=== PATIENT | male | born 1945 | race Caucasian/White ===

== ENCOUNTER 2018-05-06 09:13 | Emergency (ER) | payer OTHER ==
--- NOTE | 2018-05-06 09:36 | ER ---
Nurse's Notes [facility] Name: Trevin Foote Jr Age: 72 yrs Sex: Male : 1945 Arrival Date: 05/06/2018 Time: 09:16 Bed 13 Private MD: None, None Diagnosis: Cellulitis and abscess of mouth Presentation: 05/06 09:28 Presenting complaint: Patient states: L facial swelling and pain that began yesterday. ss "I think it's an abscessed tooth.". Transition of care: patient was not received from another setting of care. Onset of symptoms was May 05, 2018. Risk Assessment: Do you want to hurt yourself or someone else? Patient reports no desire to harm self or others. Initial Sepsis Screen: Does the patient meet any 2 criteria? No. Patient's initial sepsis screen is negative. Does the patient have a suspected source of infection? Yes: Other: tooth. Care prior to arrival: None. 09:28 Method Of Arrival: Ambulatory ss 09:28 Acuity: BRUCE 4 ss Triage Assessment: 09:38 General: Appears in no apparent distress. uncomfortable. EENT: Reports pain in left em cheek. Historical: - Allergies: 09:32 PENICILLINS; ss - PMHx: 09:32 COPD; Diabetes - NIDDM; Hypertension; ss - PSHx: 09:32 L knee replacement; cardiac stents x2; ss - Immunization history:: Adult Immunizations up to date. - Social history:: The patient lives at home, Smoking status: Patient/guardian denies using tobacco. - Ebola Screening: : Patient denies exposure to infectious person Patient denies travel to an Ebola-affected area in the 21 days before illness onset. Screenin:40 Abuse screen: Denies threats or abuse. Nutritional screening: No deficits noted. em Tuberculosis screening: No symptoms or risk factors identified. Fall Risk None identified. Assessment: 09:37 General: Appears in no apparent distress. uncomfortable, Behavior is calm, cooperative. em Pain: Complains of pain in left cheek Pain currently is 6 out of 10 on a pain scale. Neuro: Level of Consciousness is awake, alert, obeys commands, Oriented to person, place, time, situation. Cardiovascular: Capillary refill < 3 seconds Patient's skin is warm and dry. Respiratory: Airway is patent Respiratory effort is even, unlabored, Respiratory pattern is regular, symmetrical. GI: Abdomen is flat. : No signs and/or symptoms were reported regarding the genitourinary system. EENT: Oral mucosa is moist. Derm: Skin is intact, Skin is pink, warm \\T\\ dry. Musculoskeletal: Range of motion: intact in all extremities. 09:45 General: The previous assessment is accurate. Call light remains within reach. . ss Vital Signs: 09:32 BP 163 / 79; Pulse 66; Resp 16; Temp 98.1; Pulse Ox 96% on R/A; Weight 83.91 kg; Height ss 5 ft. 7 in. (170.18 cm); Pain 6/10; 09:32 Body Mass Index 28.97 (83.91 kg, 170.18 cm) ED Course: 09:16 Patient arrived in ED. sb2 09:17 None, None is Private Physician. sb2 09:22 Tim Monet MD is Attending Physician. 09:32 Triage completed. ss 09:32 Arm band placed on right wrist. ss 09:42 Deng Kaur LVN is Primary Nurse. em 09:46 Patient has correct armband on for positive identification. Call light in reach. Side em rails up X2. Adult w/ patient. 09:46 No provider procedures requiring assistance completed. Patient did not have IV access em during this emergency room visit. Administered Medications: No medications were administered Outcome: 09:36 Discharge ordered by . 09:48 Discharged to home ambulatory. em 09:48 Condition: good 09:48 Discharge instructions given to patient, Instructed on discharge instructions, follow up and referral plans. no drinking with medication, no driving heavy equipment, medication usage, Demonstrated understanding of instructions, follow-up care, medications, Prescriptions given X 2. 09:48 Patient left the ED. em Signatures: Dneg Kaur LVN LVN em [place] Yi RN RN Tim Monet MD MD Mariluz Fischer sb2
--- NOTE | 2018-05-06 09:36 | EDPHYS ---
Physician Documentation [facility] Name: Trevin Foote Jr Age: 72 yrs Sex: Male : 1945 Arrival Date: 05/06/2018 Time: 09:16 Bed 13 Private MD: None, None ED Physician Tim Monet HPI: 05/06 09:30 This 72 yrs old Male presents to ER via Unassigned with complaints of gs Toothache. 09:30 The patient presents with swelling. The problem is located in the left cheek and upper gs left second bicuspid. Onset: The symptoms/episode began/occurred 3 day(s) ago. Duration: The symptoms are continuous. Modifying factors: The symptoms are alleviated by nothing, the symptoms are aggravated by nothing. Associated signs and symptoms: Pertinent negatives: fever. Severity of symptoms: At their worst the symptoms were moderate, in the emergency department the symptoms are unchanged. The patient has experienced similar episodes in the past, a few times. Historical: - Allergies: 09:32 PENICILLINS; ss - PMHx: 09:32 COPD; Diabetes - NIDDM; Hypertension; ss - PSHx: 09:32 L knee replacement; cardiac stents x2; ss - Immunization history:: Adult Immunizations up to date. - Social history:: The patient lives at home, Smoking status: Patient/guardian denies using tobacco. - Ebola Screening: : Patient denies exposure to infectious person Patient denies travel to an Ebola-affected area in the 21 days before illness onset. ROS: 09:31 Constitutional: Negative for fever. gs 09:31 All other systems are negative. Exam: 09:31 Head/Face: Normocephalic, atraumatic. Eyes: Pupils equal round and reactive to light, gs extra-ocular motions intact. Lids and lashes normal. Conjunctiva and sclera are non-icteric and not injected. Cornea within normal limits. Periorbital areas with no swelling, redness, or edema. Cardiovascular: Regular rate and rhythm with a normal S1 and S2. No gallops, murmurs, or rubs. Normal PMI, no JVD. No pulse deficits. Respiratory: Lungs have equal breath sounds bilaterally, clear to auscultation and percussion. No rales, rhonchi or wheezes noted. No increased work of breathing, no retractions or nasal flaring. 09:31 Constitutional: The patient appears alert, awake. 09:31 Head/face: Noted is swelling, that is mild, of the left cheek. 09:31 ENT: Dental exam: abscess, that is mild, specifically in the upper left first molar (#14). Vital Signs: 09:32 BP 163 / 79; Pulse 66; Resp 16; Temp 98.1; Pulse Ox 96% on R/A; Weight 83.91 kg; Height ss 5 ft. 7 in. (170.18 cm); Pain 6/10; 09:32 Body Mass Index 28.97 (83.91 kg, 170.18 cm) ss MDM: 09:25 Patient medically screened. 09:31 Differential diagnosis: dental caries, dental abscess. Data reviewed: vital signs, gs nurses notes. Response to treatment: There is no appreciated change of the patient's symptoms at this time, and as a result, I will discharge patient. Administered Medications: No medications were administered Disposition: 05/06/18 09:36 Discharged to Home. Impression: Cellulitis and abscess of mouth. - Condition is Stable. - Discharge Instructions: Dental Abscess. - Prescriptions for Clindamycin HCl 300 mg Oral Capsule - take 1 capsule by ORAL route every 8 hours for 7 days; 21 capsule. Tylenol- Codeine #4 300-60 mg Oral Tablet - take 1 tablet by ORAL route every 6 hours As needed; 12 tablet. - Medication Reconciliation Form, Thank You Letter, Antibiotic Education, Prescription Opioid Use form. - Follow up: Private Physician; When: Tomorrow; Reason: Re-evaluation by your physician. Signatures: Deng Kaur LVN LVN em Smirch, Shelby, RN RN Tim Monet MD MD gs Corrections: (The following items were deleted from the chart) 09:48 09:36 05/06/2018 09:36 Discharged to Home. Impression: Cellulitis and abscess of mouth. em Condition is Stable. Forms are Medication Reconciliation Form, Thank You Letter, Antibiotic Education, Prescription Opioid Use. Follow up: Private Physician; When: Tomorrow; Reason: Re-evaluation by your physician.
[2018-05-06 09:55] VITALS: BP 163/79; TEMP 98.1; O2SAT 96
== END 2018-05-06 09:48 | disposition home or self-care (01) ==
LOC: ER 09:13
DX: K12.2 Cellulitis and abscess of mouth (principal); E11.9 Type 2 diabetes mellitus without complications; I10 Essential (primary) hypertension; Z96.652 Presence of left artificial knee joint; Z88.0 Allergy status to penicillin
CPT/HCPCS: 99282

== ENCOUNTER 2022-11-09 19:45 | Emergency (ER) | payer OTHER ==
--- NOTE | 2022-11-09 22:12 | RAD REPORT ---
EXAM DESCRIPTION: Waqar Single View11/09/2022 10:02 pm CLINICAL HISTORY: Shortness of breath COMPARISON: 2018 FINDINGS: Left lateral costophrenic sulcus is not included in the film and is not evaluated. The lungs are mildly hyperaerated. The visualized lungs appear clear of acute infiltrate. The heart is normal size IMPRESSION: No acute abnormalities displayed
--- NOTE | 2022-11-09 22:39 | ER ---
Nurse's Notes [facility] Name: Trevin Foote Jr Age: 77 yrs Sex: Male : 1945 Arrival Date: 11/09/2022 Time: 19:50 Bed 6 Private MD: Diagnosis: Coronavirus infection, unspecified Presentation: 11/09 20:27 Chief complaint: Patient states: "He went to the [place] on Monday and got tested, but we tw5 didn't get the results until Monday and we got told he had COVID. They gave him doxycycline and Benzonatate. He seemed like he was getting better but then he started running a fever today. It got up to 100.4, he took some ibuprofen around 1900.". Coronavirus screen: Vaccine status: Patient reports receiving the 2nd dose of the covid vaccine. Moderna + Booster. Ebola Screen: Patient negative for fever greater than or equal to 101.5 degrees Fahrenheit, and additional compatible Ebola Virus Disease symptoms Patient denies exposure to infectious person. Patient denies travel to an Ebola-affected area in the 21 days before illness onset. Initial Sepsis Screen: Does the patient meet any 2 criteria? No. Patient's initial sepsis screen is negative. Does the patient have a suspected source of infection? No. Patient's initial sepsis screen is negative. Risk Assessment: Do you want to hurt yourself or someone else? Patient reports no desire to harm self or others. Onset of symptoms is unknown. 20:27 Method Of Arrival: Ambulatory tw5 20:27 Acuity: BRUCE 3 tw5 Triage Assessment: 20:34 General: Appears in no apparent distress. Behavior is calm, cooperative, appropriate tw5 for age. Pain: Complains of pain in "My joints hurt." Pain currently is 4 out of 10 on a pain scale. Respiratory: Reports shortness of breath at rest Onset: The symptoms/episode began/occurred at an unknown time. the patient has mild shortness of breath. Historical: - Allergies: 20:33 PENICILLINS; tw5 - PMHx: 20:33 COPD; Diabetes - NIDDM; Hypertension; tw5 - Immunization history:: Flu vaccine is not up to date. - Social history:: Smoking status: Patient/guardian denies using tobacco, but has a distant history of tobacco abuse. Screenin:36 [facility] ED Fall Risk Assessment (Adult) Score/Fall Risk Level 0 - 2 = Low Risk. Abuse as6 screen: Denies threats or abuse. Denies injuries from another. Nutritional screening: No deficits noted. Tuberculosis screening: No symptoms or risk factors identified. Assessment: 22:00 General: Appears in no apparent distress. Behavior is calm, cooperative. Pain: Denies as6 pain. Neuro: Level of Consciousness is awake, alert, obeys commands, Oriented to person, place, time, situation. Respiratory: Reports shortness of breath Respiratory effort is even, unlabored. Vital Signs: 20:27 BP 137 / 58; Pulse 80; Resp 20; Temp 98.6; Pulse Ox 91% on R/A; Weight 83.91 kg; Height tw5 5 ft. 7 in. (170.18 cm); Pain 5/10; 22:33 BP 153 / 72; Pulse 68; Resp 17 S; Pulse Ox 94% on R/A; as6 20:27 Body Mass Index 28.97 (83.91 kg, 170.18 cm) tw5 ED Course: 19:50 Patient arrived in ED. ja2 20:33 Triage completed. tw5 20:34 Neymar Reagan, RN is Primary Nurse. as6 20:34 Arm band placed on. tw5 20:38 Latosha Kearns MD is Attending Physician. sd2 22:04 XRAY Chest (1 view) In Process Unspecified. EDMS 22:42 No provider procedures requiring assistance completed. Patient did not have IV access as6 during this emergency room visit. 22:43 Bed in low position. Call light in reach. as6 Administered Medications: No medications were administered Medication: 22:43 VIS not applicable for this client. as6 Outcome: 22:38 Discharge ordered by . sd2 22:43 Discharged to home ambulatory, with significant other. as6 22:43 Condition: stable 22:43 Discharge instructions given to patient, significant other, Instructed on discharge instructions, follow up and referral plans. Demonstrated understanding of instructions, follow-up care. 22:44 Patient left the ED. as6 Signatures: Dispatcher [employer] EDMS Emil Karen ja2 Lorraine Rojo tw5 Neymar Reagan, KASI RN as6 Latosha Kearns MD MD sd2
--- NOTE | 2022-11-09 22:39 | EDPHYS ---
Physician Documentation [facility] Name: Trevin Foote Jr Age: 77 yrs Sex: Male : 1945 Arrival Date: 11/09/2022 Time: 19:50 Bed 6 Private MD: ED Physician Latosha Kearns HPI: 11/09 22:34 This 77 yrs old Male presents to ER via Ambulatory with complaints of Covid, Breathing sd2 Difficulty, Fever. 22:34 77-year-old male presents with a chief complaint of fever. He reports he was diagnosed sd2 with COVID last week. He started having symptoms on and was tested on Monday and received his results on Monday. He reports that his fever had gone away and he was starting to feel improved for the past 2 days but his fever returned today with a temperature of 100.4 Fahrenheit. The patient took ibuprofen prior to arrival which has improved his temperature. He also does endorse some associated shortness of breath. He does have COPD and has been using his inhalers at home with relief. He denies any significant vomiting or diarrhea and has been able to stay well-hydrated.. Historical: - Allergies: 20:33 PENICILLINS; tw5 - PMHx: 20:33 COPD; Diabetes - NIDDM; Hypertension; tw5 - Immunization history:: Flu vaccine is not up to date. - Social history:: Smoking status: Patient/guardian denies using tobacco, but has a distant history of tobacco abuse. ROS: 22:34 Eyes: Negative for injury, pain, redness, and discharge, ENT: Negative for injury, sd2 pain, and discharge, Cardiovascular: Negative for chest pain, palpitations, and edema. 22:34 Abdomen/GI: Negative for abdominal pain, nausea, vomiting, diarrhea. MS/Extremity: Negative for injury and deformity, Skin: Negative for injury, rash, and discoloration, Neuro: Negative for headache, numbness and tingling. 22:34 Constitutional: Positive for fever, Negative for poor PO intake, weight loss. 22:34 Respiratory: Positive for cough, shortness of breath, Negative for dyspnea on exertion, acute changes. Exam: 22:34 Constitutional: This is a well developed, well nourished patient who is awake, alert, sd2 and in no acute distress. Head/Face: Normocephalic, atraumatic. Eyes: EOMI, normal conjunctiva bilaterally Chest/axilla: Normal chest wall appearance and motion. Nontender with no deformity. Cardiovascular: Regular rate and rhythm with a normal S1 and S2. No gallops, murmurs, or rubs. 2+ distal pulses. Respiratory: Lungs have equal breath sounds bilaterally, clear to auscultation and percussion. No rales, rhonchi or wheezes noted. No increased work of breathing, no retractions or nasal flaring. Abdomen/GI: Soft, non-tender, with normal bowel sounds. No guarding or rebound. No evidence of tenderness throughout. Skin: Warm, dry with normal turgor. Normal color with no rashes, no lesions, and no evidence of cellulitis. MS/ Extremity: Pulses equal, no cyanosis. Neurovascular intact. Full, normal range of motion. Ambulatory without difficulty. Psych: Awake, alert, with orientation to person, place and time. Behavior, mood, and affect are within normal limits. Vital Signs: 20:27 BP 137 / 58; Pulse 80; Resp 20; Temp 98.6; Pulse Ox 91% on R/A; Weight 83.91 kg; Height tw5 5 ft. 7 in. (170.18 cm); Pain 5/10; 22:33 BP 153 / 72; Pulse 68; Resp 17 S; Pulse Ox 94% on R/A; as6 20:27 Body Mass Index 28.97 (83.91 kg, 170.18 cm) tw5 MDM: 20:38 Patient medically screened. sd2 22:34 Differential diagnosis: COVID, pneumonia, bronchitis, doubt ACS among others. Data sd2 reviewed: vital signs, nurses notes, radiologic studies. Counseling: I had a detailed discussion with the patient and/or guardian regarding: the historical points, exam findings, and any diagnostic results supporting the discharge/admit diagnosis, radiology results, the need for outpatient follow up, to return to the emergency department if symptoms worsen or persist or if there are any questions or concerns that arise at home. ED course: 77-year-old well-appearing male presents with chief complaint of COVID symptoms. He has already been diagnosed with COVID and is currently being treated with Mucinex as well as doxycycline and benzonatate in addition to his home inhalers. He is not hypoxic or in any respiratory distress. No signs of PNA on CXR. Pt resting comfortably with no respiratory distress. No further indications at this time for emergent workup. Doubt PE as no significant respiratory change or tachycardia. Advised of strict return precautions and pt and comfortable with discharge plan and verbalize understanding. . 11/09 21:14 Order name: XRAY Chest (1 view); Complete Time: 22:17 sd2 Administered Medications: No medications were administered Disposition Summary: 11/09/22 22:38 Discharge Ordered Location: Home sd2 Problem: an ongoing problem sd2 Symptoms: have improved sd2 Condition: Stable sd2 Diagnosis - Coronavirus infection, unspecified sd2 Followup: sd2 - With: Private Physician - When: 2 - 3 days - Reason: Recheck today's complaints, Continuance of care, Re-evaluation by your physician Discharge Instructions: - Discharge Summary Sheet sd2 - COVID-19 sd2 - 10 Things You Can Do to Manage Your COVID-19 Symptoms at Home - [facility] sd2 Forms: - Medication Reconciliation Form sd2 - Thank You Letter sd2 - Antibiotic Education sd2 - Prescription Opioid Use sd2 Signatures: Dispatcher [employer] Lorraine Pinedo tw5 Latosha Kearns MD MD sd2
[2022-11-09 22:58] VITALS: TEMP 98.6
[2022-11-09 23:08] VITALS: BP 153/72; O2SAT 94
== END 2022-11-09 22:44 | disposition home or self-care (01) ==
LOC: ER 19:45
DX: U07.1 COVID-19 (principal); J44.9 Chronic obstructive pulmonary disease, unspecified; I10 Essential (primary) hypertension; Z88.5 Allergy status to narcotic agent
CPT/HCPCS: 71045

== ENCOUNTER 2023-07-03 23:52 | Emergency (ER) | payer OTHER ==
[2023-07-04] MEDS ORDERED: MORPHINE 4 MG/ML SYR ONE (00:29)
[2023-07-04] MEDS ORDERED: ONDANSETRON 4 MG/2 ML VIAL ONE (00:29)
[2023-07-04 00:50] LABS: Renal Epithelial <5 /HPF (None Seen); Specific Gravity 1.014 (1.005-1.030); Urine Bacteria None Seen /HPF (<20); Urine Bilirubin NEGATIVE (Negative); Urine Blood Negative (Negative); Urine Clarity Clear (Clear); Urine Color Light-Yellow (Yellow); Urine Glucose 4+ (Negative); Urine Protein 2+ (Negative); Urine RBC None Seen /HPF (None Seen); Urine Urobilinogen Normal (Normal); Urine pH 6.5 (5.0-7.0)
[2023-07-04 00:57] LABS: Absolute Lymphocytes (CBC) 1.9 K/uL (0.7-4.9); Hematocrit 45.1 % (39.6-49.0); Lymphocytes % 23.2 % (15.3-44.8); MCV 89.9 fL (80-100); MPV 8.4 fL (7.6-11.3); Platelets 211 thou/uL (152-406); RBC Red Blood Cell Count 5.01 M/uL (4.33-5.43)
[2023-07-04 00:58] LABS: Bilirubin Total 0.4 mg/dL (0.2-1.0); Potassium 4.2 mEq/L (3.5-5.1)
[2023-07-04 00:59] LABS: Albumin 3.7 g/dL (3.4-5.0)
--- NOTE | 2023-07-04 02:24 | EDPHYS ---
Physician Documentation [facility] Name: Trevin Foote Jr Age: 78 yrs Sex: Male : 1945 Arrival Date: 07/03/2023 Time: 23:52 Bed 17 Private MD: ED Physician Jesus Grove HPI: 07/04 02:05 This 78 yrs old Male presents to ER via Ambulatory with complaints of Possible Kidney kb Stone. 02:05 The patient complains of pain in the right flank. The pain radiates to the right lower kb quadrant. Onset: The symptoms/episode began/occurred 4 day(s) ago, and became worse today. Modifying factors: The symptoms are alleviated by nothing. the symptoms are aggravated by nothing. Associated signs and symptoms: Pertinent positives: urinary frequency, Pertinent negatives: dysuria, fever, hematuria, nausea, vomiting. Severity of pain: At its worst the pain was moderate in the emergency department the pain is unchanged. The patient has experienced similar episodes in the past, a few times. The patient has not recently seen a physician. Pt reports flank pain that started Monday and has gotten worse. Reports it feels similar to previous kidney stones. Reports frequency, denies dysuria, hematuria and difficulty urinating. Historical: - Allergies: 00:18 PENICILLINS; vc1 - PMHx: 00:18 COPD; Diabetes - NIDDM; Hypertension; vc1 - PSHx: 00:18 None; vc1 - Immunization history:: Client reports receiving the 2nd dose of the Covid vaccine. - Social history:: Smoking status: Patient denies any tobacco usage or history of. ROS: 02:04 Constitutional: Negative for fever, chills, and weight loss. kb 02:04 Back: Positive for flank pain, on the right. 02:04 All other systems are negative. Exam: 02:04 Constitutional: This is a well developed, well nourished patient who is awake, alert, kb and in no acute distress. Head/Face: Normocephalic, atraumatic. ENT: Moist Mucous membranes Cardiovascular: Regular rate and rhythm with a normal S1 and S2. No gallops, murmurs, or rubs. No pulse deficits. Respiratory: Respirations even and unlabored. No increased work of breathing. Talking in full sentences Skin: Warm, dry with normal turgor. Normal color. MS/ Extremity: Pulses equal, no cyanosis. Neurovascular intact. Full, normal range of motion. Neuro: Awake and alert, GCS 15, oriented to person, place, time, and situation. Moves all extremities. Normal gait. 02:04 Abdomen/GI: Inspection: abdomen appears normal, Bowel sounds: normal, Palpation: soft, in all quadrants, moderate abdominal tenderness, in the right lower quadrant. 02:04 Back: CVA tenderness, that is mild, is noted on the right. Vital Signs: 00:11 BP 188 / 74; Pulse 68; Resp 15; Temp 98.2; Pulse Ox 96% ; Weight 83.91 kg; Height 5 ft. vc1 7 in. ; Pain 6/10; 01:09 BP 166 / 72; Pulse 59; Resp 16 S; Pulse Ox 98% on R/A; lg3 02:51 BP 168 / 70; Pulse 54; Resp 17 S; Pulse Ox 97% on R/A; lg3 00:11 Body Mass Index 28.97 (83.91 kg, 170.18 cm) vc1 00:11 Pain Scale: Adult vc1 MDM: 07/03 23:58 Patient medically screened. 07/04 02:05 Data reviewed: vital signs, nurses notes. kb 02:07 Differential diagnosis: nephrolithiasis, pyelonephritis, UTI. kb 02:22 Counseling: I had a detailed discussion with the patient and/or guardian regarding: the kb historical points, exam findings, and any diagnostic results supporting the discharge/admit diagnosis, lab results, radiology results, the need for outpatient follow up, a urologist, to return to the emergency department if symptoms worsen or persist or if there are any questions or concerns that arise at home. 07/03 23:58 Order name: CBC with Diff; Complete Time: 01:09 kb 07/03 23:58 Order name: CMP; Complete Time: 01:06 kb 07/03 23:58 Order name: Urinalysis w/ reflexes; Complete Time: 00:53 kb 07/03 23:58 Order name: CT Stone Protocol 07/03 23:58 Order name: IV Saline Lock; Complete Time: 00:31 kb 07/03 23:58 Order name: Labs collected and sent; Complete Time: 00:31 kb Administered Medications: 00:30 Drug: Ondansetron IVP 4 mg Route: IVP; Site: right antecubital; lg3 02:35 Follow up: Response: No adverse reaction lg3 00:31 Drug: morphine IVP or IV 4 mg Route: IVP; Infused Over: 4 mins; Site: right antecubital;lg3 02:35 Follow up: Response: No adverse reaction; Marked relief of symptoms lg3 02:46 Drug: [place] PO 10 mg-325 mg 1 tabs Route: PO; lg3 02:51 Follow up: Response: No adverse reaction lg3 Disposition: 20:12 Co-signature as Attending Physician, Jesus Grove MD I agree with the assessment sp4 and plan of care. I reviewed the patient's care provided by the Advanced Practice Provider and agree with the diagnosis and treatment plan. Disposition Summary: 07/04/23 02:23 Discharge Ordered Location: [facility] Condition: Stable kb Diagnosis - Calculus of kidney kb Followup: kb - With: Emergency Department - When: As needed - Reason: Worsening of condition Followup: kb - With: Private Physician - When: 2 - 3 days - Reason: Recheck today's complaints, Continuance of care, Re-evaluation by your physician Discharge Instructions: - Discharge Summary Sheet kb - Kidney Stones, [id number] kb Forms: - Medication Reconciliation Form kb - Thank You Letter kb - Antibiotic Education kb - Prescription Opioid Use kb - Patient Portal Instructions kb - Leadership Thank You Letter kb Prescriptions: - Diclofenac Sodium 75 mg Oral tablet,delayed release (DR/EC) - take 1 tablet by ORAL route 2 times per day As needed; 30 tablet; Refills: 0, kb Product Selection Permitted Signatures: Dispatcher [employer] Meghan Sow, ROSALINDA CORADO-Angelia Rivera, RN RN lg3 Eleanor Conroy RN RN vc1 Jesus Grove MD MD sp4
--- NOTE | 2023-07-04 02:24 | ER ---
Nurse's Notes [facility] Name: Trevin Foote Jr Age: 78 yrs Sex: Male : 1945 Arrival Date: 07/03/2023 Time: 23:52 Bed 17 Private MD: Diagnosis: Calculus of kidney Presentation: 07/04 00:11 Chief complaint: Patient states: I'm having right flank pain that started Monday, it vc1 got worse tonight. Coronavirus screen: Vaccine status: Patient reports receiving the 2nd dose of the covid vaccine. plus one moderna Client denies travel out of the [place] in the last 14 days. At this time, the client does not indicate any symptoms associated with coronavirus-19. Ebola Screen: Patient negative for fever greater than or equal to 101.5 degrees Fahrenheit, and additional compatible Ebola Virus Disease symptoms Patient denies exposure to infectious person. Patient denies travel to an Ebola-affected area in the 21 days before illness onset. No symptoms or risks identified at this time. Initial Sepsis Screen: Does the patient meet any 2 criteria? No. Patient's initial sepsis screen is negative. Does the patient have a suspected source of infection? No. Patient's initial sepsis screen is negative. Risk Assessment: Do you want to hurt yourself or someone else? Patient reports no desire to harm self or others. Onset of symptoms was June 30, 2023. 00:11 Method Of Arrival: Ambulatory vc1 00:11 Acuity: BRUCE 3 vc1 Triage Assessment: 00:20 General: Appears in no apparent distress. uncomfortable, Behavior is calm, cooperative, vc1 appropriate for age. Pain: Complains of pain in posterior aspect of right lateral abdomen Pain does not radiate. Pain currently is 6 out of 10 on a pain scale. at worst was 12 out of 10 on a pain scale. Quality of pain is described as sharp. EENT: No deficits noted. No signs and/or symptoms were reported regarding the EENT system. Neuro: Level of Consciousness is awake, alert, obeys commands, Oriented to person, place, time, situation, Appropriate for age. Cardiovascular: No deficits noted. Respiratory: Airway is patent Respiratory effort is even, unlabored, Respiratory pattern is regular, symmetrical. GI: Reports right flank pain. : Reports pain in right flank(s), urinary frequency. Derm: No deficits noted. No signs and/or symptoms reported regarding the dermatologic system. Musculoskeletal: No deficits noted. No signs and/or symptoms reported regarding the musculoskeletal system. Historical: - Allergies: 00:18 PENICILLINS; vc1 - PMHx: 00:18 COPD; Diabetes - NIDDM; Hypertension; vc1 - PSHx: 00:18 None; vc1 - Immunization history:: Client reports receiving the 2nd dose of the Covid vaccine. - Social history:: Smoking status: Patient denies any tobacco usage or history of. Screenin:20 [facility] ED Fall Risk Assessment (Adult) History of falling in the last 3 months, vc1 including since admission No falls in past 3 months (0 pts) Confusion or Disorientation No (0 pts) Intoxicated or Sedated No (0 pts) Impaired Gait No (0 pts) Mobility Assist Device Used No (0 pt) Altered Elimination No (0 pt) Score/Fall Risk Level 0 - 2 = Low Risk Oriented to surroundings, Maintained a safe environment, Educated pt \T\ family on fall prevention, incl call for assistance when getting out of bed. Abuse screen: Denies threats or abuse. Nutritional screening: No deficits noted. Tuberculosis screening: No symptoms or risk factors identified. Assessment: 00:31 General: Appears in no apparent distress. uncomfortable, Behavior is calm, cooperative. lg3 Pain: Complains of pain in right flank. Neuro: No deficits noted. Glover Agitation-Sedation Scale (RASS): 0 - Alert and Calm Level of Consciousness is awake, alert, obeys commands, Oriented to person, place, time, situation. Cardiovascular: No deficits noted. Denies chest pain, shortness of breath, Capillary refill < 3 seconds Clubbing of nail beds is absent JVD is absent Patient's skin is warm and dry. Respiratory: No deficits noted. Airway is patent Respiratory effort is even, unlabored, Respiratory pattern is regular, symmetrical. GI: No deficits noted. Abdomen is round non-distended, Bowel sounds present X 4 quads. Abd is soft X 4 quads Abdomen is tender to palpation in right lower quadrant. : No deficits noted. No signs and/or symptoms were reported regarding the genitourinary system. EENT: No deficits noted. No signs and/or symptoms were reported regarding the EENT system. Derm: No deficits noted. No signs and/or symptoms reported regarding the dermatologic system. Skin is intact, is healthy with good turgor, Skin is dry, Skin is normal, Skin temperature is warm. Musculoskeletal: No deficits noted. Circulation, motion, and sensation intact. Range of motion: intact in all extremities. 01:09 Reassessment: Patient appears in no apparent distress at this time. No changes from lg3 previously documented assessment. Patient and/or family updated on plan of care and expected duration. Pain level reassessed. Patient is alert, oriented x 3, equal unlabored respirations, skin warm/dry/pink. 02:51 Reassessment: Patient appears in no apparent distress at this time. No changes from lg3 previously documented assessment. Patient and/or family updated on plan of care and expected duration. Pain level reassessed. Patient is alert, oriented x 3, equal unlabored respirations, skin warm/dry/pink. Vital Signs: 00:11 BP 188 / 74; Pulse 68; Resp 15; Temp 98.2; Pulse Ox 96% ; Weight 83.91 kg; Height 5 ft. vc1 7 in. ; Pain 6/10; 01:09 BP 166 / 72; Pulse 59; Resp 16 S; Pulse Ox 98% on R/A; lg3 02:51 BP 168 / 70; Pulse 54; Resp 17 S; Pulse Ox 97% on R/A; lg3 00:11 Body Mass Index 28.97 (83.91 kg, 170.18 cm) vc1 00:11 Pain Scale: Adult vc1 ED Course: 07/03 23:53 Patient arrived in ED. kj1 23:58 Meghan Peng [facility]C [facility] kb 23:58 Jesus Grove MD is Attending Physician. kb 07/04 00:18 Triage completed. vc1 00:20 Angelia Knowles, KASI is Primary Nurse. lg3 00:20 Arm band placed on right wrist. vc1 00:22 Patient has correct armband on for positive identification. Bed in low position. Call vc1 light in reach. Pulse ox on. NIBP on. 00:30 Inserted saline lock: 20 gauge in right antecubital area, using aseptic technique. lg3 Blood collected. 00:31 Door closed. Noise minimized. Warm blanket given. Family accompanied patient. lg3 00:31 CBC with Diff Sent. lg3 00:31 CMP Sent. lg3 00:31 Urinalysis w/ reflexes Sent. lg3 00:31 Patient maintains SpO2 saturation greater than 95% on room air. lg3 01:18 CT Stone Protocol In Process Unspecified. EDMS 02:52 No provider procedures requiring assistance completed. IV discontinued, intact, lg3 bleeding controlled, No redness/swelling at site. Pressure dressing applied. Administered Medications: 00:30 Drug: Ondansetron IVP 4 mg Route: IVP; Site: right antecubital; lg3 02:35 Follow up: Response: No adverse reaction lg3 00:31 Drug: morphine IVP or IV 4 mg Route: IVP; Infused Over: 4 mins; Site: right antecubital;lg3 02:35 Follow up: Response: No adverse reaction; Marked relief of symptoms lg3 02:46 Drug: [place] PO 10 mg-325 mg 1 tabs Route: PO; lg3 02:51 Follow up: Response: No adverse reaction lg3 Medication: 00:23 VIS not applicable for this client. vc1 Outcome: 02:23 Discharge ordered by . kb 02:52 Discharged to home ambulatory, with significant other. lg3 02:52 Condition: stable 02:52 Discharge instructions given to patient, Instructed on discharge instructions, follow up and referral plans. medication usage, Demonstrated understanding of instructions, follow-up care, medications, Prescriptions given X 1. 02:52 Patient left the ED. lg3 Signatures: Dispatcher [employer] EDA[employer] Meghan Peng, ROSALINDA CORADO-Amber Rosado kj1 Angelia Knowles RN RN lg3 Eleanor Conroy RN RN vc1 Corrections: (The following items were deleted from the chart) 01:22 01:09 BP 166 / 78; Pulse 61bpm; Resp 16bpm; Spontaneous; Pulse Ox 98% RA; lg3 lg3
[2023-07-04] MEDS ORDERED: HYDROCODONE/APAP 10/325 TAB ONE (02:55)
[2023-07-04 03:03] VITALS: TEMP 98.2
[2023-07-04 03:14] VITALS: BP 168/70; O2SAT 97
--- NOTE | 2023-07-04 13:06 | RAD REPORT ---
EXAM DESCRIPTION: CT - Stone Protocol - 07/04/2023 6:44 am CLINICAL HISTORY: 78 years, Male, FLANK PAIN COMPARISON: None TECHNIQUE: Multiple transaxial tomograms of the abdomen and pelvis were performed from the lung base s to the symphysis pubis utilizing 3 mm slice thickness at 3 mm interval reconstruction, without admi nistration of IV and oral contrast. Multiplanar reformats in the sagittal and coronal plane were generated and reviewed. This exam was performed according to our departmental dose-optimization protocol, which includes auto mated exposure control, adjustment of the mA and/or kV according to patient size and/or use of iterat rosana reconstruction technique. FINDINGS: The lack of IV and oral contrast limits evaluation of solid organs, subtle lesions cannot be excluded. The lung bases demonstrate to be clear. Grossly the unopacified liver, gallbladder, pancreas, spleen and adrenal glands demonstrate to be wit hin normal limits, no significant focal lesions were identified. The kidneys demonstrate grossly unremarkable. There is a lower pole right renal calculus measuring 6.4 mm on image 57. There is no evidence for hydronephrosis/or hydroureter No focal masses were demon strated. Grossly the unopacified stomach, small bowel and large bowel demonstrate to be within normal limits. There is no evidence for bowel dilatation/or free air. The appendix is unremarkable. The left site co marilia demonstrate minimal diverticulosis. The urinary bladder demonstrate to be within normal limits. There is prominence of the prostate gland perhaps related to BPH The aorta demonstrate atherosclerotic disease extending into the iliac arteri es. There is no retroperitoneal lymphadenopathy. There is no evidence for ascites. The bone windo ws demonstrate mild scoliosis with anterior spondylosis. Small bilateral inguinal hernias containing omentum. IMPRESSION: 6.4 mm lower pole right renal calculus. No evidence for hydronephrosis/or hydroureter. Small bilateral inguinal hernias containing omentum. Prominent prostate gland perhaps related to BPH. Electronically signed by: Percy Beckwith MD 07/04/2023 2:16 AM CDT Due to temporary technical issues with the PACS/Fluency reporting system, reports are being signed by the in house radiologists without review as a courtesy to insure prompt reporting. The interpreting radiologist is fully responsible for the content of the report.
== END 2023-07-04 02:52 | disposition home or self-care (01) ==
LOC: ER 23:52
DX: N20.0 Calculus of kidney (principal); Z87.442 Personal history of urinary calculi; I10 Essential (primary) hypertension; Z88.0 Allergy status to penicillin
CPT/HCPCS: 85025; 81001; 36415; 80053; 76377; 74176; J2405; 96374; 96375; 99285